=== PATIENT | female | born 2000 | race Caucasian/White ===

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

== ENCOUNTER 2022-04-08 01:07 | Inpatient (IN) | payer MEDICAID ==
[~2022-04-08] VITALS: Ht 160 cm; Wt 45.4 kg
[~2022-04-08 01:07] MED LIST changes: +BO1 TP; -DOXY100C2 MT; +DOXY100C5 MT
[2022-04-08] MEDS ORDERED: MORPHINE SULFATE 4 MG/ML CPJ (NOT FOR IM USE) IV ONE ×2 (02:15→04:45)
[2022-04-08] MEDS ORDERED: ONDANSETRON HCL 4MG/2ML INJ IV ONE (02:15)
[2022-04-08 02:31] LABS: BASOPHILS % 0.4 % (0.0-2.0); EOSINOPHILS % 0.9 % (0.0-5.0); HEMOGLOBIN. 13.3 g/dL (12.0-16.0); LYMPHOCYTES % 26.5 % (20.0-50.0); MEAN CORPUSCULAR HEMOGLOBIN 29.3 pg (28.0-32.0); MEAN CORPUSCULAR VOLUME 85.7 fL (81.0-99.0); MEAN PLATELET VOLUME 8.6 fl (7.4-10.4); MONOCYTES % 7.2 % (2.0-8.0); PLATELET 288 x1000/uL (130-400); RED BLOOD CELL COUNT 4.55 mill/uL (4.2-5.4); RED CELL DISTRIBUTION WIDTH 13.5 % (11.6-14.6)
[2022-04-08 02:35] LABS: CHLORIDE 107 mEq/L (98-107)
[2022-04-08 02:39] LABS: PARTIAL THROMBOPLASTIN TIME 27.9 sec (23.4-31.0); PROTHROMBIN TIME 10.9 sec (9.6-11.0)
[2022-04-08 02:43] LABS: ETHANOL BLOOD 59 mg/dL
[2022-04-08 02:50] LABS: HCG SCREEN NEGATIVE
[2022-04-08] MEDS ORDERED: IOHEXOL-300 100 ML BOTTLE ONE (06:56)
[2022-04-08 07:40] LABS: CLARITY URINE CLEAR (CLEAR); COLOR URINE YELLOW (YELLOW); KETONES URINE NEGATIVE (NEGATIVE); LEUKOCYTE ESTERASE URINE NEGATIVE (NEGATIVE); NITRITE URINE NEGATIVE (NEGATIVE); OCCULT BLOOD URINE TRACE (NEGATIVE); PROTEIN URINE NEGATIVE (NEGATIVE); SPECIFIC GRAVITY URINE 1.039 (1.005-1.030); UROBILINOGEN URINE 0.2 E.U./dL (0.2-1.0)
[2022-04-08] MEDS ORDERED: CLONIDINE 0.1MG TABLET PO PRN (10:45)
[2022-04-08] MEDS ORDERED: ONDANSETRON HCL 4MG/2ML INJ IV PRN (10:45)
[2022-04-08] MEDS ORDERED: DOCUSATE SODIUM 100MG CAPSULE PO PRN (10:45)
[2022-04-08] MEDS ORDERED: NALOXONE HCL 0.4MG/ML VIAL IV PRN (10:45)
[2022-04-08] MEDS ORDERED: IPRATROPIUM/ALBUTEROL 0.5-3(2.5)MG/3ML NEB HHN PRN (10:45)
[2022-04-08] MEDS ORDERED: ACETAMINOPHEN 325MG TABLET PO PRN ×2 (10:45)
[2022-04-08] MEDS: HYDROCODONE/ACETAMINOPHEN 5/325MG TABLET PO PRN ×4 (12:37→22:06)
[2022-04-08] MEDS: LORAZEPAM 0.5MG TABLET PO PRN (16:44)
[2022-04-09] MEDS: LORAZEPAM 0.5MG TABLET PO PRN (05:06)
[2022-04-09] MEDS: HYDROCODONE/ACETAMINOPHEN 5/325MG TABLET PO PRN ×2 (05:07→10:28)
[2022-04-09 08:00] VITALS: BP 116/83
[2022-04-09 10:00] VITALS: BP 116/83
[2022-04-09] MEDS ORDERED: NALO4SPR BOTHNSTRLS ×2 (10:08)
[2022-04-09] MEDS ORDERED: ACET325T52 MT ×2 (10:08)
[2022-04-09] MEDS ORDERED: HYDR-4001 MT ×3 (10:08→12:39)
[2022-04-09 12:06] VITALS: BP 116/83
== END 2022-04-09 14:40 | disposition home or self-care (01) | DRG 347 ==
LOC: ER 01:07 → MICUSO 01:08 → EDBEDREQ 06:53 → EDBEDREQTM 06:53 → 6EST 04-09 09:30
PROVIDERS: ADMIT Internal Medicine; ATTEND Internal Medicine
DX: S32.019A Unspecified fracture of first lumbar vertebra, initial encounter for closed fracture (principal); E87.20 Acidosis, unspecified; F41.1 Generalized anxiety disorder; R74.01 Elevation of levels of liver transaminase levels; F32.A Depression, unspecified; F10.90 Alcohol use, unspecified, uncomplicated; V89.2XXA Person injured in unspecified motor-vehicle accident, traffic, initial encounter; Z79.899 Other long term (current) drug therapy; Y93.89 Activity, other specified; Y92.410 Unspecified street and highway as the place of occurrence of the external cause; Y99.8 Other external cause status; Y90.2 Blood alcohol level of 40-59 mg/100 ml
CPT/HCPCS: 36415; 71045; 71270; 72148; 74178; 76705; 80053; 80320; 81003; 83605; 84703; 85025; 86850; 86900; 93880; 97161; 99291; J2270; J2405; Q9967; A4315; G0480